=== PATIENT | male | born 1985 | race Caucasian/White ===

== ENCOUNTER 2024-04-24 00:25 | Emergency (ER) | payer OTHER ==
[~2024-04-24] VITALS: Ht 177.8 cm; Wt 125.6 kg
[2024-04-24 00:33] VITALS: BP 184/132; PULSE 150; RESP 20; TEMP 96.5; O2SAT 95
[2024-04-24] MEDS ORDERED: CHLO-757 PO (01:06)
[2024-04-24] MEDS ORDERED: ONDA8TAB87 PO (01:06)
[2024-04-24] MEDS: ONDANSETRON 4 MG/2 ML VIAL IVP ONE ×2 (02:02→03:41)
[2024-04-24] MEDS: LORazepam 2 MG/ML VIAL IVP ONE (02:03)
[2024-04-24] MEDS: NACL 0.9% 1,000 ML IV ONE ×3 (02:10→03:35)
[2024-04-24 02:56] VITALS: BP 165/108; PULSE 133; RESP 21; TEMP 96.5; O2SAT 96
== END 2024-04-24 05:40 | disposition home or self-care (01) ==
LOC: MED 00:25
DX: E86.0 Dehydration (principal); F10.239 Alcohol dependence with withdrawal, unspecified; R07.89 Other chest pain; R06.02 Shortness of breath; F41.9 Anxiety disorder, unspecified; I10 Essential (primary) hypertension; Z98.890 Other specified postprocedural states; Y90.9 Presence of alcohol in blood, level not specified
CPT/HCPCS: 93005; 96361; 96374; 96375; 96376; 99284; J2060; J2405; J7030